=== PATIENT | female | born 1980 | race American Indian/Alaskan Native ===

== ENCOUNTER 2017-06-14 12:40 | Observation (INO) | payer MEDICAID ==
[~2017-06-14] VITALS: Ht 170.2 cm; Wt 46.3 kg
[~2017-06-14 12:40] MED LIST: ACET1TAB12 PO; ALBU8HFA INH; ARIP5TAB4 PO; CETI-1 PO; CLIN300C3 PO; CYCL-1 PO; DICL100G15 TOP; DOCU-149 PO; ESCI10TA45 PO; ESOM20CA PO; ETON68IM; FAMO20TA44 PO; GUAI120015 PO; GUAI600T PO; HYDR25SU33 RC; HYDR50CA5 PO; IBUP-1986 PO; MECL-111 PO; OMEP20CA10 PO; ONDA4TAB12 PO; ONDA4TAB9 SL; OXYC-134 PO; PANT-47 PO; POTA10TA19 PO; PROCHC RC; QUET25TA PO; SUCR1ORA2 PO; TAMS0.4C32 PO; TOP25T PO
[2017-06-14] MEDS ORDERED: ondansetron/PF 4mg/2ml inj IV ONE (13:40)
[2017-06-14] MEDS ORDERED: morphine 4 MG/ML inj SYRINge IV ONE (13:40)
[2017-06-14] MEDS ORDERED: normal saline 1000ml 1,000 ML IV ONE (13:40)
[2017-06-14 13:47] LABS: CLARITY,URINE SLIGHTLY CLOUDY (Clear); COLOR,URINE STRAW (Yellow); GLUCOSE, URINE NEGATIVE (Neg); KETONES,URINE NEGATIVE (Neg); LEUKOCYTE ESTERASE ,URINE SMALL (Neg); NITRITES, URINE NEGATIVE (Neg); OCCULT BLOOD,URINE SMALL (Neg); PROTEIN,URINE NEGATIVE (Neg); UA COLLECTION TYPE CLN CATCH MIDSTREAM; UROBILINOGEN,URINE 0.2 E.U/dL (0.2-1.0)
[2017-06-14 13:49] LABS: BASOPHILS % (AUTO) 0.3 % (0-1); EOSINOPHILS % (AUTO) 0.4 % (0-6); HEMATOCRIT 42.6 % (35.0-45.0); HEMOGLOBIN 14.9 g/dl (12.0-16.0); LYMPHOCYTES # (AUTO) 1.8 X10'3 (1.1-4.8); LYMPHOCYTES % (AUTO) 32.8 % (21-51); MEAN CORPUSCULAR HEMOGLOBIN 32.6 PG (27.0-31.0); MEAN CORPUSCULAR VOLUME 93.1 FL (78-98); MEAN PLATELET VOLUME 6.7 FL (7.4-10.4); MONOCYTES # (AUTO) 0.2 X10'3 (0-0.9); MONOCYTES % (AUTO) 3.9 % (2-12); NEUTROPHILS # (AUTO) 3.4 X10'3 (1.8-7.7); NEUTROPHILS % (AUTO) 62.6 % (42-75); PLATELET COUNT 281 X10'3 (140-440); RED BLOOD COUNT 4.58 X10'6 (4.20-5.60); RED CELL DISTRIBUTION WIDTH 13.8 % (11.5-14.5); WHITE BLOOD COUNT 5.5 X10'3 (4.5-11.0)
[2017-06-14 13:57] LABS: PROTHROMBIN TIME 10.3 SECONDS (9.0-12.0)
[2017-06-14] MEDS ORDERED: CLON-527 PO (14:00)
[2017-06-14 14:03] LABS: ALANINE AMINOTRANSFERASE 23 U/L (12-78); ALBUMIN 4.1 G/DL (3.4-5.0); ALBUMIN/GLOBULIN RATIO 1.1 (1.1-1.5); ALKALINE PHOSPHATASE 82 IU/L (46-116); ANION GAP 10 (8-16); ASPARTATE AMINO TRANSFERASE 10 U/L (10-37); BILIRUBIN,TOTAL 0.5 MG/DL (0.1-1.0); BLOOD UREA NITROGEN 8 MG/DL (7-18); BUN/CREATININE RATIO 7.6 (6.6-38.0); CALCIUM 8.7 MG/DL (8.5-10.1); CHLORIDE 102 MMOL/L (99-107); CREATININE 1.05 MG/DL (0.40-0.90); GLUCOSE 103 MG/DL (70-104); LIPASE 67 U/L (73-393); POTASSIUM 4.4 MMOL/L (3.5-5.1); SODIUM 138 MMOL/L (135-145); TOTAL CARBON DIOXIDE 26.1 MMOL/L (24-32); TOTAL PROTEIN 7.8 G/DL (6.4-8.2); eGFR 60 ML/MIN
[2017-06-14 14:03] LABS: SQUAMOUS EPITHELIAL CELL,UR MODERATE /LPF (FEW)
[2017-06-14 14:04] LABS: BACTERIA,URINE 1+ /HPF (Neg); RBC,URINE NONE SEEN /HPF (0-2)
[2017-06-14 14:39] LABS: HCG SERUM QL NEGATIVE
[2017-06-14] MEDS ORDERED: pantoprazole 40 MG vial IV ONE (14:40)
[2017-06-14] MEDS ORDERED: morphine 5 MG/ML injection IV ONE (14:40)
[2017-06-14] MEDS ORDERED: acetaminophen 325mg tablet PO PRN (14:45)
[2017-06-14] MEDS ORDERED: magnesium hydroxide 30ml (MOM) UD suspension PO PRN (14:45)
[2017-06-14] MEDS ORDERED: ondansetron/PF 4mg/2ml inj IV PRN (14:45)
[2017-06-14] MEDS ORDERED: mag hydrox/Alum hydrox/simeth 30ml oral suspension PO PRN (14:45)
[2017-06-14] MEDS: normal saline 1000ml 1,000 ML IV SCH (14:52)
[2017-06-14] MEDS ORDERED: cyclobenzaprine 10mg tablet PO PRN ×2 (15:45→17:40)
[2017-06-14] MEDS ORDERED: clonazePAM 1mg tablet PO PRN ×2 (15:45→17:40)
[2017-06-14] MEDS ORDERED: pantoprazole 40MG/NS 100ML BAG 100 ML IV SCH (16:00)
[2017-06-14 16:18] VITALS: BP 122/73
[2017-06-14 16:24] LABS: OCCULT BLOOD STOOL POSITIVE (Neg)
[2017-06-14] MEDS: morphine 4 MG/ML inj SYRINge IV PRN (17:58)
[2017-06-14 18:40] VITALS: BP 112/70
[2017-06-14] MEDS ORDERED: quetiapine 100mg tablet PO SCH ×2 (21:00)
[2017-06-15] VITALS (9 sets, daily range): BP systolic 86–109; BP diastolic 44–70
[2017-06-15] MEDS: normal saline 1000ml 1,000 ML IV SCH ×2 (00:04→10:43)
[2017-06-15] MEDS: morphine 4 MG/ML inj SYRINge IV PRN ×2 (04:47→10:20)
[2017-06-15 05:24] LABS: BASOPHILS % (AUTO) 0.2 % (0-1); EOSINOPHILS % (AUTO) 0.3 % (0-6); HEMATOCRIT 35.7 % (35.0-45.0); HEMOGLOBIN 12.6 g/dl (12.0-16.0); LYMPHOCYTES # (AUTO) 2.9 X10'3 (1.1-4.8); LYMPHOCYTES % (AUTO) 59.8 % (21-51); MEAN CORPUSCULAR HEMOGLOBIN 32.6 PG (27.0-31.0); MEAN CORPUSCULAR HGB CONC 35.3 % (33.0-36.5); MEAN CORPUSCULAR VOLUME 92.5 FL (78-98); MEAN PLATELET VOLUME 6.7 FL (7.4-10.4); MONOCYTES # (AUTO) 0.3 X10'3 (0-0.9); MONOCYTES % (AUTO) 6.7 % (2-12); NEUTROPHILS # (AUTO) 1.6 X10'3 (1.8-7.7); PLATELET COUNT 222 X10'3 (140-440); RED BLOOD COUNT 3.86 X10'6 (4.20-5.60); RED CELL DISTRIBUTION WIDTH 13.7 % (11.5-14.5); WHITE BLOOD COUNT 4.8 X10'3 (4.5-11.0)
[2017-06-15 05:36] LABS: ALBUMIN 3.1 G/DL (3.4-5.0); ANION GAP 9 (8-16); BLOOD UREA NITROGEN 9 MG/DL (7-18); BUN/CREATININE RATIO 9.5 (6.6-38.0); CALCIUM 7.9 MG/DL (8.5-10.1); CHLORIDE 108 MMOL/L (99-107); CREATININE 0.95 MG/DL (0.40-0.90); GLUCOSE 89 MG/DL (70-104); POTASSIUM 3.9 MMOL/L (3.5-5.1); SODIUM 143 MMOL/L (135-145); TOTAL CARBON DIOXIDE 25.8 MMOL/L (24-32); eGFR 67 ML/MIN
[2017-06-15] MEDS ORDERED: non-formulary drug (Omeprazole 2 CAP) PO SCH (07:00)
[2017-06-15] MEDS ORDERED: normal saline 1000ml 1,000 ML IV SCH (07:23)
[2017-06-15] MEDS ORDERED: MIDAZolam 1mg/ml 10ml vial IV PRN (07:25)
[2017-06-15] MEDS ORDERED: LIDOcaine Viscous 15ml cup PO ONE (07:25)
[2017-06-15] MEDS ORDERED: fentaNYL/PF 50MCG/1 ML 2ML syringe IV PRN (07:25)
[2017-06-15] MEDS ORDERED: pantoprazole 40mg Tablet.DR PO SCH (07:30)
[2017-06-15] MEDS ORDERED: cetirizine 10mg tablet PO SCH (08:00)
[2017-06-15] MEDS ORDERED: citalopram 20mg tablet PO SCH (08:00)
[2017-06-15] MEDS ORDERED: potassium chloride 8mEq ER tablet PO SCH (08:00)
[2017-06-15] MEDS ORDERED: aripiprazole 5mg tablet PO SCH ×2 (08:00)
[2017-06-15] MEDS ORDERED: topiramate 25mg tablet PO SCH ×2 (08:00)
[2017-06-15] MEDS ORDERED: MIDAZolam 1mg/ml 10ml vial ONE (08:20)
[2017-06-15] MEDS ORDERED: fentaNYL/PF 50MCG/1 ML 2ML syringe ONE (08:20)
[2017-06-15] MEDS ORDERED: ketorolac trometh. 30mg/ml inj. IM ONE (14:20)
[2017-06-15] MEDS ORDERED: FLU VACC QS2017-18 36MOS UP/PF 60 MCG/0.5 ML SYRINGE IMVAC ONE (17:20)
== END 2017-06-15 15:15 | disposition home or self-care (01) ==
LOC: ER 12:42 → ED HOLD 14:43 → SUR 3N 16:12
PROVIDERS: ADMIT Family Medicine; ATTEND Family Medicine
DX: K92.0 Hematemesis (principal); F31.9 Bipolar disorder, unspecified; F41.9 Anxiety disorder, unspecified; K21.9 Gastro-esophageal reflux disease without esophagitis; K64.8 Other hemorrhoids; G43.909 Migraine, unspecified, not intractable, without status migrainosus; J40 Bronchitis, not specified as acute or chronic; G89.29 Other chronic pain; Z90.49 Acquired absence of other specified parts of digestive tract
CPT/HCPCS: 36415; 43239; 80048; 80053; 81001; 82272; 83690; 84703; 85025; 85610; 87070; 87088; 96374; 96375; 96376; 99285; C9113; G0378; J2250; J2270; J2405; J3010; J7030; A4620; G0500

== ENCOUNTER 2017-09-24 17:46 | Emergency (ER) | payer MEDICAID ==
[~2017-09-24] VITALS: Ht 175.3 cm; Wt 101.4 kg
[~2017-09-24 17:46] MED LIST changes: -ACET1TAB12 PO; -ALBU8HFA INH; -CLIN300C3 PO; +CLON-527 PO; -DICL100G15 TOP; -DOCU-149 PO; -ESOM20CA PO; -ETON68IM; -FAMO20TA44 PO; -GUAI120015 PO; -GUAI600T PO; -HYDR25SU33 RC; -HYDR50CA5 PO; -IBUP-1986 PO; -MECL-111 PO; -ONDA4TAB12 PO; -ONDA4TAB9 SL; -OXYC-134 PO; -PANT-47 PO; -PROCHC RC; -SUCR1ORA2 PO; -TAMS0.4C32 PO
[2017-09-24] MEDS ORDERED: proCHLORperazine 10 MG/2 ml inj IV ONE (19:20)
[2017-09-24] MEDS ORDERED: diphenhydrAMINE 50 mg/ml inj IV ONE (19:20)
[2017-09-24 20:21] VITALS: BP 109/64
== END 2017-09-24 20:28 | disposition home or self-care (01) ==
LOC: ER 17:47
DX: G43.909 Migraine, unspecified, not intractable, without status migrainosus (principal); K21.9 Gastro-esophageal reflux disease without esophagitis; G89.29 Other chronic pain; Z88.0 Allergy status to penicillin; Z88.2 Allergy status to sulfonamides; Z98.51 Tubal ligation status; Z98.890 Other specified postprocedural states
CPT/HCPCS: 96374; 96375; 99284; J0780; J1200

== ENCOUNTER 2017-10-22 13:36 | Emergency (ER) | payer MEDICAID ==
[~2017-10-22] VITALS: Ht 175.3 cm; Wt 6.8 kg
[2017-10-22 14:37] LABS: BASOPHILS % (AUTO) 0.2 % (0-1); EOSINOPHILS % (AUTO) 0 % (0-6); HEMATOCRIT 41.6 % (35.0-45.0); HEMOGLOBIN 14.6 g/dl (12.0-16.0); LYMPHOCYTES # (AUTO) 2.1 X10'3 (1.1-4.8); LYMPHOCYTES % (AUTO) 51.7 % (21-51); MEAN CORPUSCULAR HEMOGLOBIN 32.3 PG (27.0-31.0); MEAN CORPUSCULAR HGB CONC 35.1 % (33.0-36.5); MEAN CORPUSCULAR VOLUME 92.1 FL (78-98); MEAN PLATELET VOLUME 6.9 FL (7.4-10.4); MONOCYTES # (AUTO) 0.2 X10'3 (0-0.9); MONOCYTES % (AUTO) 4.7 % (2-12); NEUTROPHILS # (AUTO) 1.7 X10'3 (1.8-7.7); NEUTROPHILS % (AUTO) 43.4 % (42-75); PLATELET COUNT 262 X10'3 (140-440); RED BLOOD COUNT 4.52 X10'6 (4.20-5.60); RED CELL DISTRIBUTION WIDTH 13.8 % (11.5-14.5)
[2017-10-22 14:42] LABS: URINE HCG NEGATIVE (NEG)
[2017-10-22 14:43] LABS: CLARITY,URINE CLOUDY (Clear); COLOR,URINE STRAW (Yellow); GLUCOSE, URINE NEGATIVE (Neg); KETONES,URINE NEGATIVE (Neg); LEUKOCYTE ESTERASE ,URINE SMALL (Neg); NITRITES, URINE NEGATIVE (Neg); OCCULT BLOOD,URINE NEGATIVE (Neg); PROTEIN,URINE NEGATIVE (Neg); UROBILINOGEN,URINE 0.2 E.U/dL (0.2-1.0)
[2017-10-22 14:46] LABS: UA COLLECTION TYPE CLN CATCH MIDSTREAM
[2017-10-22 14:48] LABS: PROTHROMBIN TIME 10.7 SECONDS (9.0-12.0)
[2017-10-22 14:55] LABS: ALANINE AMINOTRANSFERASE 26 U/L (12-78); ALBUMIN 3.8 G/DL (3.4-5.0); ALKALINE PHOSPHATASE 76 IU/L (46-116); ANION GAP 9 (8-16); ASPARTATE AMINO TRANSFERASE 10 U/L (10-37); BILIRUBIN,TOTAL 0.4 MG/DL (0.1-1.0); BLOOD UREA NITROGEN 8 MG/DL (7-18); BUN/CREATININE RATIO 8.5 (6.6-38.0); CALCIUM 8.8 MG/DL (8.5-10.1); CHLORIDE 101 MMOL/L (99-107); CREATININE 0.94 MG/DL (0.40-0.90); GLUCOSE 94 MG/DL (70-104); SODIUM 138 MMOL/L (135-145); TOTAL CARBON DIOXIDE 27.9 MMOL/L (24-32); TOTAL PROTEIN 7.7 G/DL (6.4-8.2); eGFR 68 ML/MIN
[2017-10-22 14:55] LABS: BACTERIA,URINE 2+ /HPF (Neg); MUCUS STRANDS NONE SEEN /LPF (Neg); RBC,URINE NONE SEEN /HPF (0-2); SQUAMOUS EPITHELIAL CELL,UR MANY /LPF (FEW)
[2017-10-22] MEDS ORDERED: LIDOcaine Viscous 15ml cup MM PRN (15:50)
[2017-10-22] MEDS ORDERED: pantoprazole 40mg Tablet.DR PO SCH (15:50)
[2017-10-22] MEDS ORDERED: mag hydrox/Alum hydrox/simeth 30ml oral suspension PO ONE (15:50)
[2017-10-22] MEDS ORDERED: ondansetron 4mg rapidly disintigrating tab PO ONE (15:50)
[2017-10-22 16:04] LABS: LIPASE 88 U/L (73-393)
[2017-10-22] MEDS ORDERED: PANT20TA3 PO (17:29)
[2017-10-22] MEDS ORDERED: ONDA4TAB6 PO (17:29)
[2017-10-22 17:44] VITALS: BP 118/69
== END 2017-10-22 17:45 | disposition home or self-care (01) ==
LOC: ER 13:37
DX: R10.13 Epigastric pain (principal); G43.909 Migraine, unspecified, not intractable, without status migrainosus; K21.9 Gastro-esophageal reflux disease without esophagitis; F31.9 Bipolar disorder, unspecified; R10.12 Left upper quadrant pain; K64.4 Residual hemorrhoidal skin tags; G89.29 Other chronic pain; Z98.51 Tubal ligation status; Z88.1 Allergy status to other antibiotic agents; Z88.0 Allergy status to penicillin; Z88.8 Allergy status to other drugs, medicaments and biological substances; Z79.899 Other long term (current) drug therapy; Z90.49 Acquired absence of other specified parts of digestive tract; Z90.89 Acquired absence of other organs
CPT/HCPCS: 36415; 80053; 81001; 81025; 83690; 85025; 85610; 99284

== ENCOUNTER 2018-02-15 13:44 | Emergency (ER) | payer MEDICAID ==
[~2018-02-15] VITALS: Ht 175.3 cm; Wt 98.7 kg
[~2018-02-15 13:44] MED LIST changes: +MECL-111 PO; +ONDA4TAB6 PO; +PANT20TA3 PO
[2018-02-15 13:59] VITALS: BP 137/82
[2018-02-15] MEDS ORDERED: oxyCODONE/APAP 10/325mg tablet PO ONE (14:20)
[2018-02-15] MEDS ORDERED: orphenadrine citrate 60mg/2ml inj. IM ONE (14:20)
[2018-02-15] MEDS ORDERED: CYCL-1 PO (14:29)
== END 2018-02-15 14:49 | disposition home or self-care (01) ==
LOC: ER 13:45
DX: M54.5 Low back pain (principal); G89.29 Other chronic pain; G43.909 Migraine, unspecified, not intractable, without status migrainosus; K21.9 Gastro-esophageal reflux disease without esophagitis; Z90.49 Acquired absence of other specified parts of digestive tract; Z98.51 Tubal ligation status; Z88.1 Allergy status to other antibiotic agents; Z88.0 Allergy status to penicillin; Z88.5 Allergy status to narcotic agent; Z88.6 Allergy status to analgesic agent; Z79.899 Other long term (current) drug therapy
CPT/HCPCS: 96372; 99283; J2360

== ENCOUNTER 2018-03-05 14:28 | Emergency (ER) | payer MEDICAID ==
[~2018-03-05] VITALS: Ht 175.3 cm; Wt 97.0 kg
[2018-03-05] MEDS ORDERED: ondansetron/PF 4mg/2ml inj IV ONE (15:10)
[2018-03-05] MEDS ORDERED: famotidine/PF 10 mg/ml inj IV ONE (15:10)
[2018-03-05 15:15] LABS: BASOPHILS % (AUTO) 0.3 % (0-1); EOSINOPHILS # (AUTO) 0.1 X10'3 (0-0.9); HEMATOCRIT 40.4 % (35.0-45.0); HEMOGLOBIN 13.7 g/dl (12.0-16.0); LYMPHOCYTES # (AUTO) 1.7 X10'3 (1.1-4.8); LYMPHOCYTES % (AUTO) 21.2 % (21-51); MEAN CORPUSCULAR HEMOGLOBIN 31.2 PG (27.0-31.0); MEAN CORPUSCULAR HGB CONC 33.8 % (33.0-36.5); MEAN CORPUSCULAR VOLUME 92.2 FL (78-98); MEAN PLATELET VOLUME 6.3 FL (7.4-10.4); MONOCYTES # (AUTO) 0.6 X10'3 (0-0.9); MONOCYTES % (AUTO) 7.1 % (2-12); NEUTROPHILS # (AUTO) 5.5 X10'3 (1.8-7.7); NEUTROPHILS % (AUTO) 70.4 % (42-75); PLATELET COUNT 254 X10'3 (140-440); RED BLOOD COUNT 4.39 X10'6 (4.20-5.60); RED CELL DISTRIBUTION WIDTH 13.3 % (11.5-14.5); WHITE BLOOD COUNT 7.8 X10'3 (4.5-11.0)
[2018-03-05 15:27] LABS: PROTHROMBIN TIME 10.5 SECONDS (9.0-12.0)
[2018-03-05 15:29] LABS: ALANINE AMINOTRANSFERASE 17 U/L (12-78); ALBUMIN 3.5 G/DL (3.4-5.0); ALKALINE PHOSPHATASE 65 IU/L (46-116); ANION GAP 9 (8-16); ASPARTATE AMINO TRANSFERASE 10 U/L (10-37); BILIRUBIN,TOTAL 0.4 MG/DL (0.1-1.0); BLOOD UREA NITROGEN 8 MG/DL (7-18); CALCIUM 8.6 MG/DL (8.5-10.1); CHLORIDE 106 MMOL/L (99-107); CREATININE 0.89 MG/DL (0.40-0.90); GLUCOSE 104 MG/DL (70-104); LIPASE 151 U/L (73-393); POTASSIUM 3.4 MMOL/L (3.5-5.1); SODIUM 140 MMOL/L (135-145); TOTAL CARBON DIOXIDE 25.5 MMOL/L (24-32); TOTAL PROTEIN 7.1 G/DL (6.4-8.2); eGFR 72 ML/MIN
[2018-03-05] MEDS ORDERED: iohexol 300mg/ml 100ml inj. ONE (15:38)
[2018-03-05 15:42] LABS: URINE HCG NEGATIVE (NEG)
[2018-03-05 15:48] LABS: CLARITY,URINE SLIGHTLY CLOUDY (Clear); COLOR,URINE YELLOW (Yellow); GLUCOSE, URINE NEGATIVE (Neg); KETONES,URINE NEGATIVE (Neg); LEUKOCYTE ESTERASE ,URINE LARGE (Neg); NITRITES, URINE NEGATIVE (Neg); OCCULT BLOOD,URINE LARGE (Neg); PH,URINE 5.5 (4.8-8.0); PROTEIN,URINE NEGATIVE (Neg); UROBILINOGEN,URINE 0.2 E.U/dL (0.2-1.0)
[2018-03-05 15:59] LABS: UA COLLECTION TYPE CLN CATCH MIDSTREAM; WBC,URINE 20-30 /HPF (0-4)
[2018-03-05 16:00] LABS: BACTERIA,URINE FEW /HPF (Neg); MUCUS STRANDS FEW /LPF (Neg); RBC,URINE 0-2 /HPF (0-2); SQUAMOUS EPITHELIAL CELL,UR FEW /LPF (FEW)
[2018-03-05] MEDS ORDERED: morphine 4 MG/ML inj SYRINge IV ONE (16:20)
[2018-03-05] MEDS ORDERED: ONDA4TAB9 PO (16:21)
[2018-03-05] MEDS ORDERED: NITR100C6 PO (16:27)
[2018-03-05 17:02] VITALS: BP 116/77
== END 2018-03-05 17:06 | disposition home or self-care (01) ==
LOC: ER 14:29
DX: N39.0 Urinary tract infection, site not specified (principal); R10.13 Epigastric pain; G43.909 Migraine, unspecified, not intractable, without status migrainosus; K21.9 Gastro-esophageal reflux disease without esophagitis; G89.29 Other chronic pain; Z90.49 Acquired absence of other specified parts of digestive tract; Z98.51 Tubal ligation status; Z88.1 Allergy status to other antibiotic agents; Z88.0 Allergy status to penicillin; Z88.5 Allergy status to narcotic agent; Z88.6 Allergy status to analgesic agent; Z79.899 Other long term (current) drug therapy
CPT/HCPCS: 36415; 74177; 80053; 81001; 81025; 83690; 85025; 85610; 87077; 87088; 87186; 93005; 96374; 96375; 99285; J2270; J2405; J3490; Q9967

== ENCOUNTER 2018-03-11 13:13 | Emergency (ER) | payer MEDICAID ==
[~2018-03-11] VITALS: Ht 175.3 cm; Wt 100.0 kg
[~2018-03-11 13:13] MED LIST changes: +NITR100C6 PO; +ONDA4TAB9 PO
[2018-03-11 13:16] VITALS: BP 132/78
[2018-03-11] MEDS ORDERED: phenazopyridine 100mg tablet PO ONE (13:35)
[2018-03-11] MEDS ORDERED: CefTRIAXone 1000mg IM Kit (w/lidocaine diluent) IM ONE (13:35)
[2018-03-11] MEDS ORDERED: ciprofloxacin 250mg tablet PO ONE (13:35)
[2018-03-11] MEDS ORDERED: PHEN-824 PO (13:38)
[2018-03-11] MEDS ORDERED: CIPR-259 PO (13:38)
== END 2018-03-11 14:11 | disposition home or self-care (01) ==
LOC: ER 13:13
DX: N39.0 Urinary tract infection, site not specified (principal); G43.909 Migraine, unspecified, not intractable, without status migrainosus; K21.9 Gastro-esophageal reflux disease without esophagitis; G89.29 Other chronic pain; M54.9 Dorsalgia, unspecified; Z90.49 Acquired absence of other specified parts of digestive tract; Z98.51 Tubal ligation status; Z88.6 Allergy status to analgesic agent; Z88.1 Allergy status to other antibiotic agents; Z88.0 Allergy status to penicillin; Z88.2 Allergy status to sulfonamides; Z88.8 Allergy status to other drugs, medicaments and biological substances
CPT/HCPCS: 96372; 99283; J0696

== ENCOUNTER 2018-05-16 16:59 | Emergency (ER) | payer MEDICAID ==
[~2018-05-16] VITALS: Ht 165.1 cm; Wt 97.0 kg
[~2018-05-16 16:59] MED LIST changes: -ONDA4TAB9 PO; +PHEN-824 PO
[2018-05-16 17:03] VITALS: BP 118/76
[2018-05-16 18:42] LABS: URINE HCG NEGATIVE (NEG)
[2018-05-16] MEDS ORDERED: ondansetron 4mg rapidly disintigrating tab PO ONE (18:45)
[2018-05-16 18:48] LABS: CLARITY,URINE SLIGHTLY CLOUDY (Clear); COLOR,URINE YELLOW (Yellow); GLUCOSE, URINE NEGATIVE (Neg); KETONES,URINE 15 mg/dl (Neg); LEUKOCYTE ESTERASE ,URINE SMALL (Neg); NITRITES, URINE NEGATIVE (Neg); OCCULT BLOOD,URINE NEGATIVE (Neg); PROTEIN,URINE NEGATIVE (Neg); UROBILINOGEN,URINE 0.2 E.U/dL (0.2-1.0)
[2018-05-16 18:49] LABS: UA COLLECTION TYPE CLN CATCH MIDSTREAM
--- NOTE | 2018-05-16 18:52 | NUR ---
Pt passed PO challenge of 24 oz water without emesis.
[2018-05-16 19:08] LABS: BACTERIA,URINE 2+ /HPF (Neg); RBC,URINE NONE SEEN /HPF (0-2); SQUAMOUS EPITHELIAL CELL,UR MANY /LPF (FEW)
[2018-05-16] MEDS ORDERED: ONDA4TAB6 PO (19:26)
[2018-05-16] MEDS ORDERED: NITR100C6 PO (19:26)
== END 2018-05-16 19:45 | disposition home or self-care (01) ==
LOC: ER 17:00
DX: R11.10 Vomiting, unspecified (principal); G43.909 Migraine, unspecified, not intractable, without status migrainosus; K21.9 Gastro-esophageal reflux disease without esophagitis; G89.29 Other chronic pain; Z90.49 Acquired absence of other specified parts of digestive tract; Z98.51 Tubal ligation status; Z88.1 Allergy status to other antibiotic agents; Z88.0 Allergy status to penicillin; Z88.5 Allergy status to narcotic agent; Z88.6 Allergy status to analgesic agent; Z79.899 Other long term (current) drug therapy
CPT/HCPCS: 81001; 81025; 99283

== ENCOUNTER 2018-06-28 13:02 | Emergency (ER) | payer MEDICAID ==
[~2018-06-28] VITALS: Ht 274.3 cm; Wt 91.5 kg
[2018-06-28 13:50] LABS: BASOPHILS % (AUTO) 0.4 % (0-1); EOSINOPHILS % (AUTO) 0.3 % (0-6); HEMATOCRIT 40.4 % (35.0-45.0); HEMOGLOBIN 14.1 g/dl (12.0-16.0); LYMPHOCYTES # (AUTO) 1.9 X10'3 (1.1-4.8); LYMPHOCYTES % (AUTO) 36.1 % (21-51); MEAN CORPUSCULAR HEMOGLOBIN 31.7 PG (27.0-31.0); MEAN CORPUSCULAR HGB CONC 34.8 g/dL (33.0-36.5); MEAN CORPUSCULAR VOLUME 91.2 FL (78-98); MEAN PLATELET VOLUME 6.8 FL (7.4-10.4); MONOCYTES # (AUTO) 0.3 X10'3 (0-0.9); MONOCYTES % (AUTO) 4.8 % (2-12); NEUTROPHILS # (AUTO) 3.1 X10'3 (1.8-7.7); NEUTROPHILS % (AUTO) 58.4 % (42-75); PLATELET COUNT 232 X10'3 (140-440); RED BLOOD COUNT 4.43 X10'6 (4.20-5.60); RED CELL DISTRIBUTION WIDTH 14.3 % (11.5-14.5); WHITE BLOOD COUNT 5.2 X10'3 (4.5-11.0)
[2018-06-28 13:59] LABS: ALANINE AMINOTRANSFERASE 22 U/L (12-78); ALBUMIN 3.7 G/DL (3.4-5.0); ALKALINE PHOSPHATASE 56 IU/L (46-116); ANION GAP 9 (8-16); ASPARTATE AMINO TRANSFERASE 17 U/L (10-37); BILIRUBIN,TOTAL 0.5 MG/DL (0.1-1.0); BLOOD UREA NITROGEN 13 MG/DL (7-18); BUN/CREATININE RATIO 16.3 (6.6-38.0); CALCIUM 9.8 MG/DL (8.5-10.1); CHLORIDE 103 MMOL/L (99-107); GLUCOSE 100 MG/DL (70-104); SODIUM 139 MMOL/L (135-145); TOTAL PROTEIN 7.4 G/DL (6.4-8.2); eGFR 81 ML/MIN
[2018-06-28 14:16] LABS: PARTIAL THROMBOPLASTIN TIME 26 SECONDS (22-32); PROTHROMBIN TIME 10.4 SECONDS (9.0-12.0)
[2018-06-28] MEDS ORDERED: LIDOcaine Viscous 15ml cup PO ONE (17:40)
[2018-06-28] MEDS ORDERED: sucralfate 1 gm tablet PO ONE (17:40)
[2018-06-28] MEDS ORDERED: metoclopramide 10mg tablet PO ONE (17:40)
[2018-06-28] MEDS ORDERED: mag hydrox/Alum hydrox/simeth 30ml oral suspension PO ONE (17:40)
[2018-06-28 18:27] VITALS: BP 117/82
== END 2018-06-28 18:30 | disposition home or self-care (01) ==
LOC: ER 13:04
DX: R10.13 Epigastric pain (principal); R07.89 Other chest pain; R20.0 Anesthesia of skin; K21.9 Gastro-esophageal reflux disease without esophagitis; G89.29 Other chronic pain; G43.909 Migraine, unspecified, not intractable, without status migrainosus; Z88.1 Allergy status to other antibiotic agents; Z88.0 Allergy status to penicillin; Z88.2 Allergy status to sulfonamides; Z88.6 Allergy status to analgesic agent; Z88.8 Allergy status to other drugs, medicaments and biological substances; Z79.899 Other long term (current) drug therapy; Z87.891 Personal history of nicotine dependence; Z90.49 Acquired absence of other specified parts of digestive tract; Z90.89 Acquired absence of other organs; Z98.51 Tubal ligation status; Z87.440 Personal history of urinary (tract) infections
CPT/HCPCS: 36415; 71045; 80053; 84484; 85025; 85610; 85730; 93005; 99284; J8597

== ENCOUNTER 2018-09-19 18:07 | Emergency (ER) | payer MEDICAID ==
[~2018-09-19] VITALS: Ht 175.3 cm; Wt 100.5 kg
[2018-09-19 18:18] VITALS: BP 117/79
[2018-09-19] MEDS ORDERED: CEPH-571 PO (18:41)
== END 2018-09-19 18:47 | disposition home or self-care (01) ==
LOC: ER 18:07
DX: N61.1 Abscess of the breast and nipple (principal); G43.909 Migraine, unspecified, not intractable, without status migrainosus; K21.9 Gastro-esophageal reflux disease without esophagitis; G89.29 Other chronic pain; Z90.49 Acquired absence of other specified parts of digestive tract; Z90.89 Acquired absence of other organs; Z98.51 Tubal ligation status; Z88.2 Allergy status to sulfonamides; Z88.0 Allergy status to penicillin; Z88.5 Allergy status to narcotic agent; Z88.6 Allergy status to analgesic agent; Z79.899 Other long term (current) drug therapy
CPT/HCPCS: 99283

== ENCOUNTER 2018-12-31 09:50 | Emergency (ER) | payer MEDICAID ==
[~2018-12-31] VITALS: Ht 177.8 cm; Wt 96.0 kg
[~2018-12-31 09:50] MED LIST changes: +CEPH-571 PO; -OMEP20CA10 PO; +OMEP20CA11 PO
[2018-12-31 10:07] VITALS: BP 106/74
[2018-12-31 10:42] LABS: CLARITY,URINE SLIGHTLY CLOUDY (Clear); COLOR,URINE STRAW (Yellow); GLUCOSE, URINE NEGATIVE (Neg); KETONES,URINE NEGATIVE (Neg); LEUKOCYTE ESTERASE ,URINE SMALL (Neg); NITRITES, URINE NEGATIVE (Neg); OCCULT BLOOD,URINE NEGATIVE (Neg); PH,URINE 5.5 (4.8-8.0); PROTEIN,URINE NEGATIVE (Neg); UROBILINOGEN,URINE 0.2 E.U/dL (0.2-1.0)
[2018-12-31 10:43] LABS: UA COLLECTION TYPE CLN CATCH MIDSTREAM; URINE HCG NEGATIVE (NEG)
[2018-12-31 10:48] LABS: BACTERIA,URINE 1+ /HPF (Neg); MUCUS STRANDS NONE SEEN /LPF (Neg); RBC,URINE NONE SEEN /HPF (0-2); SQUAMOUS EPITHELIAL CELL,UR MODERATE /LPF (FEW)
[2018-12-31 11:08] LABS: BASOPHILS % (AUTO) 0.3 % (0-1); EOSINOPHILS % (AUTO) 0.1 % (0-6); HEMOGLOBIN 14.1 g/dl (12.0-16.0); LYMPHOCYTES # (AUTO) 1.8 X10'3 (1.1-4.8); LYMPHOCYTES % (AUTO) 43.4 % (21-51); MEAN CORPUSCULAR HEMOGLOBIN 31.5 PG (27.0-31.0); MEAN CORPUSCULAR HGB CONC 34.3 g/dL (33.0-36.5); MEAN CORPUSCULAR VOLUME 91.8 FL (78-98); MEAN PLATELET VOLUME 6.4 FL (7.4-10.4); MONOCYTES # (AUTO) 0.2 X10'3 (0-0.9); MONOCYTES % (AUTO) 4.1 % (2-12); NEUTROPHILS # (AUTO) 2.2 X10'3 (1.8-7.7); NEUTROPHILS % (AUTO) 52.1 % (42-75); PLATELET COUNT 301 X10'3 (140-440); RED BLOOD COUNT 4.47 X10'6 (4.20-5.60); RED CELL DISTRIBUTION WIDTH 13.4 % (11.5-14.5); WHITE BLOOD COUNT 4.2 X10'3 (4.5-11.0)
[2018-12-31 11:20] LABS: ALANINE AMINOTRANSFERASE 22 U/L (12-78); ALBUMIN/GLOBULIN RATIO 1.2 (1.1-1.5); ALKALINE PHOSPHATASE 67 IU/L (46-116); ANION GAP 7 (8-16); ASPARTATE AMINO TRANSFERASE 12 U/L (10-37); BILIRUBIN,TOTAL 0.5 MG/DL (0.1-1.0); BLOOD UREA NITROGEN 5 MG/DL (7-18); BUN/CREATININE RATIO 6.8 (6.6-38.0); CALCIUM 8.7 MG/DL (8.5-10.1); CHLORIDE 107 MMOL/L (99-107); CREATININE 0.74 MG/DL (0.40-0.90); GLUCOSE 97 MG/DL (70-104); POTASSIUM 4.4 MMOL/L (3.5-5.1); SODIUM 140 MMOL/L (135-145); TOTAL PROTEIN 7.4 G/DL (6.4-8.2); eGFR 88 ML/MIN
[2018-12-31] MEDS ORDERED: CEPH500C5 PO (11:48)
== END 2018-12-31 12:03 | disposition home or self-care (01) ==
LOC: ER 09:50
DX: N39.0 Urinary tract infection, site not specified (principal); R31.9 Hematuria, unspecified; G43.909 Migraine, unspecified, not intractable, without status migrainosus; K21.9 Gastro-esophageal reflux disease without esophagitis; G89.29 Other chronic pain; F41.9 Anxiety disorder, unspecified; F31.9 Bipolar disorder, unspecified; Z90.49 Acquired absence of other specified parts of digestive tract; Z90.89 Acquired absence of other organs; Z98.51 Tubal ligation status; Z88.2 Allergy status to sulfonamides; Z88.0 Allergy status to penicillin; Z88.5 Allergy status to narcotic agent; Z88.6 Allergy status to analgesic agent; Z88.8 Allergy status to other drugs, medicaments and biological substances; Z79.899 Other long term (current) drug therapy
CPT/HCPCS: 36415; 80053; 81001; 81025; 85025; 85610; 87088; 99283

== ENCOUNTER 2019-07-22 18:24 | Emergency (ER) | payer MEDICAID ==
[~2019-07-22] VITALS: Ht 175.3 cm; Wt 70.0 kg
[~2019-07-22 18:24] MED LIST changes: +ARIP5TAB14 PO; -ARIP5TAB4 PO; +CEPH500C5 PO; -MECL-111 PO; +MECL-159 PO; -OMEP20CA11 PO; +OMEP20CA15 PO
[2019-07-22 18:28] VITALS: BP 120/56
--- NOTE | 2019-07-22 19:16 | NUR ---
Evaluated by PA in ambulance bay
[2019-07-22] MEDS ORDERED: ALBU8HFA PO (19:25)
[2019-07-22] MEDS ORDERED: BENZ-16 PO (19:25)
[2019-07-22] MEDS ORDERED: ONDA4TAB6 PO (19:25)
== END 2019-07-22 19:32 | disposition home or self-care (01) ==
LOC: ER 18:24 → MERGE 18:24 → ER 19:32
DX: J06.9 Acute upper respiratory infection, unspecified (principal); R11.2 Nausea with vomiting, unspecified; Z88.0 Allergy status to penicillin; Z88.5 Allergy status to narcotic agent; Z79.899 Other long term (current) drug therapy
CPT/HCPCS: 99283

== ENCOUNTER 2019-09-20 19:08 | Emergency (ER) | payer MEDICAID ==
[~2019-09-20] VITALS: Ht 175.3 cm; Wt 97.8 kg
[2019-09-20 20:00] LABS: BASOPHILS % (AUTO) 0.3 % (0-1); EOSINOPHILS % (AUTO) 0.1 % (0-6); HEMOGLOBIN 13.7 g/dl (12.0-16.0); LYMPHOCYTES # (AUTO) 2.7 X10'3 (1.1-4.8); LYMPHOCYTES % (AUTO) 50.5 % (21-51); MEAN CORPUSCULAR HEMOGLOBIN 32.3 PG (27.0-31.0); MEAN CORPUSCULAR HGB CONC 34.2 g/dL (33.0-36.5); MEAN CORPUSCULAR VOLUME 94.6 FL (78-98); MEAN PLATELET VOLUME 6.5 FL (7.4-10.4); MONOCYTES # (AUTO) 0.3 X10'3 (0-0.9); MONOCYTES % (AUTO) 5.8 % (2-12); NEUTROPHILS # (AUTO) 2.3 X10'3 (1.8-7.7); NEUTROPHILS % (AUTO) 43.3 % (42-75); PLATELET COUNT 244 X10'3 (140-440); RED BLOOD COUNT 4.23 X10'6 (4.20-5.60); RED CELL DISTRIBUTION WIDTH 13.8 % (11.5-14.5); WHITE BLOOD COUNT 5.4 X10'3 (4.5-11.0)
[2019-09-20 20:20] LABS: ALANINE AMINOTRANSFERASE 18 U/L (12-78); ALBUMIN 3.7 G/DL (3.4-5.0); ALBUMIN/GLOBULIN RATIO 0.9 (1.1-1.5); ALKALINE PHOSPHATASE 74 IU/L (46-116); ANION GAP 7 (8-16); ASPARTATE AMINO TRANSFERASE 16 U/L (10-37); BILIRUBIN,TOTAL 0.6 MG/DL (0.1-1.0); BLOOD UREA NITROGEN 11 MG/DL (7-18); BUN/CREATININE RATIO 7.1 (6.6-38.0); CALCIUM 8.3 MG/DL (8.5-10.1); CHLORIDE 104 MMOL/L (99-107); CREATININE 1.56 MG/DL (0.40-0.90); GLUCOSE 88 MG/DL (70-104); POTASSIUM 4.1 MMOL/L (3.5-5.1); SODIUM 139 MMOL/L (135-145); TOTAL CARBON DIOXIDE 27.8 MMOL/L (24-32); TOTAL PROTEIN 7.6 G/DL (6.4-8.2); eGFR 37 ML/MIN
--- NOTE | 2019-09-20 20:27 | NUR ---
PT VERY TEARFUL AND ANXIOUS, PROVIDER MADE AWARE
[2019-09-20] MEDS ORDERED: LORazepam 1 MG tablet PO ONE (20:30)
[2019-09-20] MEDS ORDERED: normal saline 1000ML IV soln IVB ONE (21:10)
[2019-09-20] MEDS ORDERED: aspirin 81mg tab.chew PO ONE (21:10)
[2019-09-20] MEDS ORDERED: ondansetron/PF 4mg/2ml inj IV ONE (21:15)
[2019-09-20 21:17] LABS: MAGNESIUM 1.9 MG/DL (1.5-2.4)
[2019-09-20 22:12] LABS: URINE HCG NEGATIVE (NEG)
[2019-09-20 22:33] LABS: CLARITY,URINE CLEAR (Clear); COLOR,URINE STRAW (Yellow); GLUCOSE, URINE NEGATIVE (Neg); KETONES,URINE NEGATIVE (Neg); LEUKOCYTE ESTERASE ,URINE NEGATIVE (Neg); NITRITES, URINE NEGATIVE (Neg); OCCULT BLOOD,URINE NEGATIVE (Neg); PROTEIN,URINE NEGATIVE (Neg); UROBILINOGEN,URINE 0.2 E.U/dL (0.2-1.0)
[2019-09-20 22:34] LABS: UA COLLECTION TYPE CLN CATCH MIDSTREAM
[2019-09-20 23:55] VITALS: BP 113/64
== END 2019-09-20 23:57 | disposition home or self-care (01) ==
LOC: ER 19:09
DX: M25.512 Pain in left shoulder (principal); R07.89 Other chest pain; R20.0 Anesthesia of skin; N17.9 Acute kidney failure, unspecified; F41.9 Anxiety disorder, unspecified; G43.909 Migraine, unspecified, not intractable, without status migrainosus; K21.9 Gastro-esophageal reflux disease without esophagitis; G89.29 Other chronic pain; F31.9 Bipolar disorder, unspecified; Z90.49 Acquired absence of other specified parts of digestive tract; Z90.89 Acquired absence of other organs; Z98.51 Tubal ligation status; Z88.2 Allergy status to sulfonamides; Z88.0 Allergy status to penicillin; Z88.5 Allergy status to narcotic agent; Z88.8 Allergy status to other drugs, medicaments and biological substances; Z79.899 Other long term (current) drug therapy
CPT/HCPCS: 36415; 71045; 80053; 81003; 81025; 83735; 84484; 85025; 93005; 96374; 99285; J2405; J7030

== ENCOUNTER 2019-11-25 13:25 | Emergency (ER) | payer MEDICAID ==
[~2019-11-25] VITALS: Ht 175.3 cm; Wt 90.0 kg
[2019-11-25 14:21] LABS: BASOPHILS % (AUTO) 0.2 % (0-1); EOSINOPHILS % (AUTO) 0.1 % (0-6); HEMATOCRIT 41.7 % (35.0-45.0); HEMOGLOBIN 14.4 g/dl (12.0-16.0); LYMPHOCYTES # (AUTO) 1.7 X10'3 (1.1-4.8); LYMPHOCYTES % (AUTO) 32.7 % (21-51); MEAN CORPUSCULAR HGB CONC 34.5 g/dL (33.0-36.5); MEAN CORPUSCULAR VOLUME 92.6 FL (78-98); MONOCYTES # (AUTO) 0.2 X10'3 (0-0.9); MONOCYTES % (AUTO) 3.9 % (2-12); NEUTROPHILS # (AUTO) 3.2 X10'3 (1.8-7.7); NEUTROPHILS % (AUTO) 63.1 % (42-75); PLATELET COUNT 252 X10'3 (140-440); RED BLOOD COUNT 4.51 X10'6 (4.20-5.60); RED CELL DISTRIBUTION WIDTH 13.2 % (11.5-14.5); WHITE BLOOD COUNT 5.1 X10'3 (4.5-11.0)
[2019-11-25 14:36] LABS: ALANINE AMINOTRANSFERASE 17 U/L (12-78); ALBUMIN/GLOBULIN RATIO 1.1 (1.1-1.5); ALKALINE PHOSPHATASE 68 IU/L (46-116); ANION GAP 9 (8-16); ASPARTATE AMINO TRANSFERASE 13 U/L (10-37); BILIRUBIN,TOTAL 0.4 MG/DL (0.1-1.0); BLOOD UREA NITROGEN 13 MG/DL (7-18); BUN/CREATININE RATIO 14.8 (6.6-38.0); CALCIUM 8.7 MG/DL (8.5-10.1); CHLORIDE 105 MMOL/L (99-107); CREATININE 0.88 MG/DL (0.40-0.90); GLUCOSE 103 MG/DL (70-104); LIPASE 296 U/L (73-393); POTASSIUM 4.2 MMOL/L (3.5-5.1); SODIUM 138 MMOL/L (135-145); TOTAL PROTEIN 7.7 G/DL (6.4-8.2); eGFR 72 ML/MIN
[2019-11-25 17:12] LABS: CLARITY,URINE SLIGHTLY CLOUDY (Clear); COLOR,URINE YELLOW (Yellow); GLUCOSE, URINE NEGATIVE (Neg); KETONES,URINE NEGATIVE (Neg); LEUKOCYTE ESTERASE ,URINE TRACE (Neg); NITRITES, URINE NEGATIVE (Neg); OCCULT BLOOD,URINE LARGE (Neg); PH,URINE 5.5 (4.8-8.0); PROTEIN,URINE NEGATIVE (Neg); URINE HCG NEGATIVE (NEG); UROBILINOGEN,URINE 0.2 E.U/dL (0.2-1.0)
[2019-11-25 17:13] LABS: UA COLLECTION TYPE CLN CATCH MIDSTREAM
[2019-11-25 17:17] LABS: SQUAMOUS EPITHELIAL CELL,UR FEW /LPF (FEW)
[2019-11-25 17:18] LABS: RBC,URINE 50-100 /HPF (0-2)
[2019-11-25 17:22] LABS: BACTERIA,URINE FEW /HPF (Neg); WBC,URINE 0-4 /HPF (0-4)
[2019-11-25] MEDS ORDERED: morphine 4 MG/ML inj SYRINge IV ONE (18:05)
[2019-11-25] MEDS ORDERED: ondansetron/PF 4mg/2ml inj IV ONE (18:05)
--- NOTE | 2019-11-25 18:21 | NUR ---
ULTRASOUND AT BEDSIDE
[2019-11-25] MEDS ORDERED: IBUP-1984 PO (19:09)
[2019-11-25 19:21] VITALS: BP 124/85
== END 2019-11-25 19:23 | disposition home or self-care (01) ==
LOC: ER 13:26
DX: D25.9 Leiomyoma of uterus, unspecified (principal); N93.8 Other specified abnormal uterine and vaginal bleeding; R10.32 Left lower quadrant pain; R19.7 Diarrhea, unspecified; R11.10 Vomiting, unspecified; G43.909 Migraine, unspecified, not intractable, without status migrainosus; K21.9 Gastro-esophageal reflux disease without esophagitis; G89.29 Other chronic pain; F41.9 Anxiety disorder, unspecified; F31.9 Bipolar disorder, unspecified; Z87.440 Personal history of urinary (tract) infections; Z90.89 Acquired absence of other organs; Z98.51 Tubal ligation status; Z88.0 Allergy status to penicillin; Z88.1 Allergy status to other antibiotic agents; Z88.8 Allergy status to other drugs, medicaments and biological substances; Z88.6 Allergy status to analgesic agent; Z79.2 Long term (current) use of antibiotics; Z79.899 Other long term (current) drug therapy
CPT/HCPCS: 36415; 76856; 80053; 81001; 81025; 83690; 85025; 87088; 93976; 96374; 96375; 99284; J2270; J2405

== ENCOUNTER 2020-03-24 05:12 | Day surgery (SDC) | payer MEDICAID ==
[2020-03-18 16:44] LABS: BASOPHILS % (AUTO) 0.3 % (0-1); EOSINOPHILS % (AUTO) 0.1 % (0-6); LYMPHOCYTES # (AUTO) 1.7 X10'3 (1.1-4.8); LYMPHOCYTES % (AUTO) 36.8 % (21-51); MEAN CORPUSCULAR VOLUME 94.2 FL (78-98); MEAN PLATELET VOLUME 6.9 FL (7.4-10.4); MONOCYTES # (AUTO) 0.2 X10'3 (0-0.9); MONOCYTES % (AUTO) 5.2 % (2-12); NEUTROPHILS # (AUTO) 2.7 X10'3 (1.8-7.7); NEUTROPHILS % (AUTO) 57.6 % (42-75); PRE OP HEMATOCRIT 46.1 % (35.0-45.0); PRE OP HEMOGLOBIN 15.7 g/dL (12.0-16.0); PRE OP PLATELET COUNT 303 X10'3 (140-440); RED BLOOD COUNT 4.89 X10'6 (4.20-5.60); RED CELL DISTRIBUTION WIDTH 13.7 % (11.5-14.5)
[2020-03-18 16:44] LABS: UA COLLECTION TYPE CLN CATCH MIDSTREAM
[2020-03-18 16:45] LABS: CLARITY,URINE SLIGHTLY CLOUDY (Clear); COLOR,URINE STRAW (Yellow); GLUCOSE, URINE NEGATIVE (Neg); KETONES,URINE NEGATIVE (Neg); LEUKOCYTE ESTERASE ,URINE NEGATIVE (Neg); NITRITES, URINE NEGATIVE (Neg); OCCULT BLOOD,URINE NEGATIVE (Neg); PROTEIN,URINE NEGATIVE (Neg); UROBILINOGEN,URINE 0.2 E.U/dL (0.2-1.0)
[2020-03-18 16:55] LABS: PRE OP PROTIME 10.7 SECONDS (9.0-12.0)
[2020-03-18 16:56] LABS: ALBUMIN 4.3 G/DL (3.4-5.0); ALBUMIN/GLOBULIN RATIO 1.2 (1.1-1.5); ALKALINE PHOSPHATASE 72 IU/L (46-116); BLOOD UREA NITROGEN 10 MG/DL (7-18); BUN/CREATININE RATIO 11.5 (6.6-38.0); CALCIUM 9.1 MG/DL (8.5-10.1); CHLORIDE 102 MMOL/L (99-107); CREATININE 0.87 MG/DL (0.40-0.90); PRE OP ALT 28 U/L (30-65); PRE OP ANION GAP 7 (8-16); PRE OP AST 17 U/L (10-37); PRE OP BILIRUB, TOTAL 0.5 MG/DL (0.0-1.0); PRE OP GLUCOSE 119 MG/DL (70-104); PRE OP POTASSIUM 3.8 MMOL/L (3.4-5.1); PRE OP SODIUM 137 MMOL/L (135-145); TOTAL CARBON DIOXIDE 27.9 MMOL/L (24-32); TOTAL PROTEIN 7.9 G/DL (6.4-8.2); eGFR 73 ML/MIN
[2020-03-18 16:58] LABS: HCG SERUM QL NEGATIVE
[2020-03-18 16:58] LABS: SQUAMOUS EPITHELIAL CELL,UR MANY /LPF (FEW)
[2020-03-18 16:59] LABS: BACTERIA,URINE FEW /HPF (Neg); MUCUS STRANDS MANY /LPF (Neg); RBC,URINE NONE SEEN /HPF (0-2); WBC,URINE 0-4 /HPF (0-4)
[~2020-03-24] VITALS: Ht 175.3 cm; Wt 86.0 kg
[2020-03-24] VITALS (13 sets, daily range): BP systolic 103–121; BP diastolic 62–75
[~2020-03-24 05:12] MED LIST changes: -ARIP5TAB14 PO; +CELE-193 PO; -CEPH-571 PO; -CEPH500C5 PO; -CETI-1 PO; -CLON-527 PO; -CYCL-1 PO; -ESCI10TA45 PO; +GABA300C PO; -MECL-159 PO; -NITR100C6 PO; -OMEP20CA15 PO; -ONDA4TAB6 PO; -PANT20TA3 PO; -PHEN-824 PO; -POTA10TA19 PO; -TOP25T PO; +ringers solution, lacted 1,000 ML IV SCH
[2020-03-24] MEDS ORDERED: clindamycin-Cleocin 900mg/D5W 50 ML IV ONE (05:30)
[2020-03-24] MEDS ORDERED: famotidine 20mg tablet PO ONE (05:30)
[2020-03-24] MEDS ORDERED: LIDOcaine 1% (10mg/ml) 2ml vial ONE (05:49)
[2020-03-24] MEDS ORDERED: BUPIVAcaine/PF 2.5 mg/ml (0.25%) 30ml vial ONE (06:50)
[2020-03-24] MEDS ORDERED: dexamethasone sod phosphate 10mg/ml inj ONE (07:15)
[2020-03-24] MEDS ORDERED: acetaminophen 1000 MG/100ml vial IV ONE (07:15)
[2020-03-24] MEDS ORDERED: sevoflurane 250ml liquid IH ONE (07:15)
[2020-03-24] MEDS ORDERED: midazolam 2 mg/2 ml injection ONE (07:20)
[2020-03-24] MEDS ORDERED: fentaNYL /PF 50mcg/ml 5ml ampule ONE (07:20)
[2020-03-24] MEDS ORDERED: ondansetron/PF 4mg/2ml inj IV PRN (08:10)
[2020-03-24] MEDS ORDERED: morphine 2 MG/ML inj. syringe IV PRN (08:10)
[2020-03-24] MEDS ORDERED: ringers solution, lacted 1,000 ML IV SCH (08:10)
[2020-03-24] MEDS ORDERED: meperidine/PF 25mg/ml syringe IV PRN ×2 (08:10)
[2020-03-24] MEDS ORDERED: morphine 4 MG/ML inj SYRINge IV PRN (08:10)
[2020-03-24] MEDS ORDERED: proCHLORperazine 10 MG/2 ml inj IV PRN (08:10)
[2020-03-24] MEDS ORDERED: neostigmine methylsulfate 1 MG/ML 10ml vial ONE (08:51)
[2020-03-24] MEDS ORDERED: propofol inj 20 ML IV ONE (08:51)
[2020-03-24] MEDS ORDERED: rocuronium 10mg/ml inj IV ONE (08:51)
[2020-03-24] MEDS ORDERED: ondansetron/PF 4mg/2ml inj ONE (08:51)
[2020-03-24] MEDS ORDERED: LIDOcaine 2% (20mg/ml) 5ml vial ONE (08:51)
[2020-03-24] MEDS ORDERED: glycopyrrolate 0.2mg/ml inj ONE (08:51)
--- NOTE | 2020-03-24 09:05 | NUR ---
Received from OR via BED , accompanied by Anesthesiologist DR SANCHEZ and report given by Anesthesiolgist. PATIENT WAKING UP, DENIES, V/S WNL, NEUROVASCULAR CHECKS INTACT, 20G PIV RUE, SCD ON, DEMABONDED AND BANDAIDS TO LAP SIGHTS OF ABDOMEN AND WITH PERIPAD WITH SCANT DRAINAGE CDI.
[2020-03-24] MEDS: meperidine/PF 25mg/ml syringe IV PRN ×3 (09:46→10:05)
[2020-03-24] MEDS ORDERED: HYDROcodone/acetaminophen 10/325mg tab PO ONE (09:50)
[2020-03-24] MEDS ORDERED: acetaminophen w/codeine (30MG) #3 tablet PO ONE (09:50)
--- NOTE | 2020-03-24 10:55 | NUR ---
PATIENT A&OX4, DENIES, V/S WNL, NEUROVASCULAR CHECKS INTACT, 20G PIV RUE D/C, SCD OFF, DEMABONDED AND BANDAIDS TO LAP SIGHTS OF ABDOMEN AND WITH PERIPAD WITH SCANT DRAINAGE CDI. PATIENT HAS WALKED, ATE AND DRANK AND URINATED PRIOR TO D/C. SCRIPT CALLED INTO [facility] ON [address]. HAVE REVIEWED D/C INSTRUCTIONS WITH PATIENT AND FAMILY AND THEY HAVE VERBALIZED UNDERSTANDING. PATIENT D/C HOME WITH FAMILY TO TRANSPORT AND ALL BELONGINGS..
== END 2020-03-24 10:55 | disposition home or self-care (01) ==
LOC: PAS 05:12
PROVIDERS: ATTEND Obstetrics & Gynecology
DX: R10.2 Pelvic and perineal pain (principal); D25.9 Leiomyoma of uterus, unspecified; N87.9 Dysplasia of cervix uteri, unspecified; F31.9 Bipolar disorder, unspecified; F41.9 Anxiety disorder, unspecified; Z87.891 Personal history of nicotine dependence; Z88.5 Allergy status to narcotic agent; Z88.8 Allergy status to other drugs, medicaments and biological substances; Z20.828 Contact with and (suspected) exposure to other viral communicable diseases; Z79.899 Other long term (current) drug therapy; Z98.51 Tubal ligation status; Z98.890 Other specified postprocedural states; Z88.0 Allergy status to penicillin; Z88.1 Allergy status to other antibiotic agents
CPT/HCPCS: 36415; 58571; 80053; 81001; 82948; 84703; 85025; 85610; 85730; 86885; 86900; 86901; 87635; C1758; J0131; J1100; J2001; J2175; J2250; J2270; J2405; J2704; J2710; J3010; J3490; J7120; S2900; A4618; A7000

== ENCOUNTER 2020-03-24 15:14 | Emergency (ER) | payer MEDICAID ==
[~2020-03-24] VITALS: Ht 175.3 cm; Wt 89.0 kg
[~2020-03-24 15:14] MED LIST changes: -ringers solution, lacted 1,000 ML IV SCH
[2020-03-24] MEDS ORDERED: morphine 4 MG/ML inj SYRINge IV PRN (16:15)
[2020-03-24] MEDS ORDERED: ondansetron/PF 4mg/2ml inj IV ONE (16:15)
[2020-03-24] MEDS ORDERED: normal saline 1000ML IV soln IVB ONE ×2 (16:15)
[2020-03-24 17:05] LABS: BASOPHILS % (AUTO) 0.1 % (0-1); EOSINOPHILS % (AUTO) 0 % (0-6); HEMATOCRIT 42.1 % (35.0-45.0); HEMOGLOBIN 14.4 g/dl (12.0-16.0); LYMPHOCYTES # (AUTO) 1.2 X10'3 (1.1-4.8); LYMPHOCYTES % (AUTO) 13.8 % (21-51); MEAN CORPUSCULAR HEMOGLOBIN 31.8 PG (27.0-31.0); MEAN CORPUSCULAR HGB CONC 34.1 g/dL (33.0-36.5); MEAN CORPUSCULAR VOLUME 93.4 FL (78-98); MEAN PLATELET VOLUME 7.4 FL (7.4-10.4); MONOCYTES # (AUTO) 0.3 X10'3 (0-0.9); MONOCYTES % (AUTO) 3.6 % (2-12); NEUTROPHILS % (AUTO) 82.5 % (42-75); PLATELET COUNT 282 X10'3 (140-440); RED BLOOD COUNT 4.51 X10'6 (4.20-5.60); RED CELL DISTRIBUTION WIDTH 13.5 % (11.5-14.5); WHITE BLOOD COUNT 8.5 X10'3 (4.5-11.0)
[2020-03-24 17:17] LABS: PARTIAL THROMBOPLASTIN TIME 24 SECONDS (22-32)
[2020-03-24 17:20] LABS: ALANINE AMINOTRANSFERASE 28 U/L (12-78); ALBUMIN 4.3 G/DL (3.4-5.0); ALBUMIN/GLOBULIN RATIO 1.3 (1.1-1.5); ALKALINE PHOSPHATASE 72 IU/L (46-116); ANION GAP 6 (8-16); ASPARTATE AMINO TRANSFERASE 17 U/L (10-37); BILIRUBIN,TOTAL 0.9 MG/DL (0.1-1.0); BLOOD UREA NITROGEN 7 MG/DL (7-18); BUN/CREATININE RATIO 6.9 (6.6-38.0); CALCIUM 8.6 MG/DL (8.5-10.1); CHLORIDE 104 MMOL/L (99-107); CREATININE 1.02 MG/DL (0.40-0.90); GLUCOSE 103 MG/DL (70-104); SODIUM 137 MMOL/L (135-145); TOTAL CARBON DIOXIDE 26.7 MMOL/L (24-32); TOTAL PROTEIN 7.6 G/DL (6.4-8.2); eGFR 61 ML/MIN
[2020-03-24] MEDS ORDERED: LORazepam 2 mg/ml vial IV ONE (17:35)
[2020-03-24] MEDS ORDERED: oxyCODONE/APAP 5-325mg tablet PO ONE (17:35)
[2020-03-24 19:04] VITALS: BP 114/74
== END 2020-03-24 19:04 | disposition home or self-care (01) ==
LOC: ER 15:14
DX: N93.9 Abnormal uterine and vaginal bleeding, unspecified (principal); G43.909 Migraine, unspecified, not intractable, without status migrainosus; K21.9 Gastro-esophageal reflux disease without esophagitis; G89.29 Other chronic pain; F32.9 Major depressive disorder, single episode, unspecified; F17.200 Nicotine dependence, unspecified, uncomplicated; Z87.440 Personal history of urinary (tract) infections; Z90.89 Acquired absence of other organs; Z90.710 Acquired absence of both cervix and uterus; Z98.51 Tubal ligation status; Z88.1 Allergy status to other antibiotic agents; Z88.0 Allergy status to penicillin; Z88.8 Allergy status to other drugs, medicaments and biological substances; Z88.6 Allergy status to analgesic agent; Z79.899 Other long term (current) drug therapy
CPT/HCPCS: 36415; 80053; 85025; 85610; 85730; 96361; 96374; 96375; 99284; J2060; J2270; J2405; J7030

== ENCOUNTER 2020-05-14 15:14 | Emergency (ER) | payer MEDICAID ==
[~2020-05-14] VITALS: Ht 175.3 cm; Wt 86.4 kg
[2020-05-14] MEDS ORDERED: oxyCODONE/APAP 5-325mg tablet PO ONE (15:20)
[2020-05-14] MEDS ORDERED: NAPR-56 PO (15:35)
[2020-05-15] MEDS ORDERED: DICY10CA88 PO (11:52)
== END 2020-05-14 15:59 | disposition home or self-care (01) ==
LOC: ER 15:15
DX: S63.502A Unspecified sprain of left wrist, initial encounter (principal); M25.532 Pain in left wrist; G43.909 Migraine, unspecified, not intractable, without status migrainosus; K21.9 Gastro-esophageal reflux disease without esophagitis; G89.29 Other chronic pain; F32.9 Major depressive disorder, single episode, unspecified; Z87.440 Personal history of urinary (tract) infections; Z90.89 Acquired absence of other organs; Z90.710 Acquired absence of both cervix and uterus; Z98.51 Tubal ligation status; Z88.1 Allergy status to other antibiotic agents; Z88.0 Allergy status to penicillin; Z88.8 Allergy status to other drugs, medicaments and biological substances; Z88.6 Allergy status to analgesic agent; Z79.2 Long term (current) use of antibiotics; Z79.899 Other long term (current) drug therapy; V89.2XXA Person injured in unspecified motor-vehicle accident, traffic, initial encounter; Y93.89 Activity, other specified; Y92.89 Other specified places as the place of occurrence of the external cause; Y99.8 Other external cause status
CPT/HCPCS: 29125; 73110; 99283

== ENCOUNTER 2020-05-15 09:51 | Emergency (ER) | payer MEDICAID, OTHER ==
[~2020-05-15] VITALS: Ht 175.3 cm; Wt 86.4 kg
[~2020-05-15 09:51] MED LIST changes: +NAPR-56 PO
[2020-05-15 10:01] VITALS: BP 143/94
[2020-05-15] MEDS ORDERED: ondansetron 4mg rapidly disintigrating tab PO ONE (10:05)
[2020-05-15] MEDS ORDERED: oxyCODONE/APAP 10/325mg tablet PO ONE (10:05)
[2020-05-15 10:54] LABS: BASOPHILS % (AUTO) 0.8 % (0-1); EOSINOPHILS % (AUTO) 0.3 % (0-6); HEMATOCRIT 40.7 % (35.0-45.0); LYMPHOCYTES # (AUTO) 1.4 X10'3 (1.1-4.8); LYMPHOCYTES % (AUTO) 48.9 % (21-51); MEAN CORPUSCULAR HEMOGLOBIN 32.1 PG (27.0-31.0); MEAN CORPUSCULAR HGB CONC 34.4 g/dL (33.0-36.5); MEAN CORPUSCULAR VOLUME 93.3 FL (78-98); MEAN PLATELET VOLUME 6.9 FL (7.4-10.4); MONOCYTES # (AUTO) 0.2 X10'3 (0-0.9); MONOCYTES % (AUTO) 6.3 % (2-12); NEUTROPHILS # (AUTO) 1.3 X10'3 (1.8-7.7); NEUTROPHILS % (AUTO) 43.7 % (42-75); PLATELET COUNT 240 X10'3 (140-440); RED BLOOD COUNT 4.36 X10'6 (4.20-5.60); RED CELL DISTRIBUTION WIDTH 13.2 % (11.5-14.5); WHITE BLOOD COUNT 2.9 X10'3 (4.5-11.0)
[2020-05-15 11:06] LABS: ALANINE AMINOTRANSFERASE 15 U/L (12-78); ALBUMIN 4.1 G/DL (3.4-5.0); ALBUMIN/GLOBULIN RATIO 1.2 (1.1-1.5); ALKALINE PHOSPHATASE 84 IU/L (46-116); ANION GAP 10 (8-16); ASPARTATE AMINO TRANSFERASE 16 U/L (10-37); BILIRUBIN,TOTAL 0.7 MG/DL (0.1-1.0); BLOOD UREA NITROGEN 8 MG/DL (7-18); BUN/CREATININE RATIO 11.4 (6.6-38.0); CALCIUM 8.8 MG/DL (8.5-10.1); CHLORIDE 106 MMOL/L (99-107); GLUCOSE 110 MG/DL (70-104); POTASSIUM 4.1 MMOL/L (3.5-5.1); SODIUM 141 MMOL/L (135-145); TOTAL CARBON DIOXIDE 25.2 MMOL/L (24-32); TOTAL PROTEIN 7.6 G/DL (6.4-8.2); eGFR > 90 ML/MIN
[2020-05-15 11:32] LABS: TOTAL CELLS COUNTED 100
[2020-05-15 11:33] LABS: PLATELET ESTIMATE NORMAL
[2020-05-15] MEDS ORDERED: DICY10CA88 PO (11:52)
== END 2020-05-15 12:05 | disposition home or self-care (01) ==
LOC: ER 09:53
DX: R10.31 Right lower quadrant pain (principal); M25.532 Pain in left wrist; R11.2 Nausea with vomiting, unspecified; R07.89 Other chest pain; G43.909 Migraine, unspecified, not intractable, without status migrainosus; K21.9 Gastro-esophageal reflux disease without esophagitis; G89.29 Other chronic pain; F32.9 Major depressive disorder, single episode, unspecified; Z87.440 Personal history of urinary (tract) infections; Z90.89 Acquired absence of other organs; Z90.710 Acquired absence of both cervix and uterus; Z98.51 Tubal ligation status; Z88.1 Allergy status to other antibiotic agents; Z88.0 Allergy status to penicillin; Z88.8 Allergy status to other drugs, medicaments and biological substances; Z88.6 Allergy status to analgesic agent; Z79.899 Other long term (current) drug therapy; V89.2XXA Person injured in unspecified motor-vehicle accident, traffic, initial encounter; Y93.89 Activity, other specified; Y92.89 Other specified places as the place of occurrence of the external cause; Y99.8 Other external cause status
CPT/HCPCS: 36415; 80053; 85007; 85025; 99283

== ENCOUNTER 2021-04-22 10:27 | Emergency (ER) | payer MEDICAID ==
[~2021-04-22] VITALS: Ht 175.3 cm; Wt 97.6 kg
[~2021-04-22 10:27] MED LIST changes: +DICY10CA88 PO; -NAPR-56 PO
[2021-04-22 10:39] VITALS: BP 132/83
[2021-04-22] MEDS ORDERED: POLY17PO10 PO (11:28)
[2021-04-22] MEDS ORDERED: BISA10SU60 RC (11:28)
== END 2021-04-22 11:55 | disposition home or self-care (01) ==
LOC: ER 10:27
DX: K59.00 Constipation, unspecified (principal); G43.909 Migraine, unspecified, not intractable, without status migrainosus; K21.9 Gastro-esophageal reflux disease without esophagitis; F32.9 Major depressive disorder, single episode, unspecified; Z87.440 Personal history of urinary (tract) infections; Z90.89 Acquired absence of other organs; Z90.710 Acquired absence of both cervix and uterus; Z98.51 Tubal ligation status; Z98.890 Other specified postprocedural states; Z88.1 Allergy status to other antibiotic agents; Z88.0 Allergy status to penicillin; Z88.8 Allergy status to other drugs, medicaments and biological substances; Z79.899 Other long term (current) drug therapy
CPT/HCPCS: 74018; 99283

== ENCOUNTER 2023-12-03 17:07 | Emergency (ER) | payer MEDICAID ==
[~2023-12-03] VITALS: Ht 172.7 cm; Wt 94.1 kg
[~2023-12-03 17:07] MED LIST changes: +BISA10SU60 RC; +DOCU100C40 PO; +HYDR25SU32 RC; +LIDO30CR TOP
[2023-12-03 17:46] LABS: BILIRUBIN,URINE NEGATIVE (Neg); CLARITY,URINE CLEAR (Clear); COLOR,URINE YELLOW (Yellow); GLUCOSE, URINE NEGATIVE (Neg); KETONES,URINE NEGATIVE (Neg); LEUKOCYTE ESTERASE ,URINE NEGATIVE (Neg); NITRITES, URINE NEGATIVE (Neg); OCCULT BLOOD,URINE NEGATIVE (Neg); PH,URINE 7.5 (4.8-8.0); PROTEIN,URINE NEGATIVE (Neg); UROBILINOGEN,URINE 0.2 E.U/dL (0.2-1.0)
[2023-12-03 17:47] LABS: URINE HCG NEGATIVE (NEG)
[2023-12-03 17:49] LABS: UA COLLECTION TYPE CLN CATCH MIDSTREAM
[2023-12-03 18:02] LABS: BASOPHILS % (AUTO) 0.4 % (0-1); EOSINOPHILS % (AUTO) 0 % (0-6); HEMATOCRIT 39.9 % (35.0-45.0); HEMOGLOBIN 13.5 g/dl (12.0-16.0); LYMPHOCYTES # (AUTO) 2.1 X10'3 (1.1-4.8); MEAN CORPUSCULAR HEMOGLOBIN 31.1 PG (27.0-31.0); MEAN CORPUSCULAR HGB CONC 33.8 g/dL (33.0-36.5); MEAN CORPUSCULAR VOLUME 91.9 FL (78-98); MEAN PLATELET VOLUME 6.5 FL (7.4-10.4); MONOCYTES # (AUTO) 0.2 X10'3 (0-0.9); MONOCYTES % (AUTO) 4.9 % (2-12); NEUTROPHILS # (AUTO) 2.6 X10'3 (1.8-7.7); NEUTROPHILS % (AUTO) 52.7 % (42-75); PLATELET COUNT 269 X10'3 (140-440); RED BLOOD COUNT 4.34 X10'6 (4.20-5.60); RED CELL DISTRIBUTION WIDTH 13.3 % (11.5-14.5)
[2023-12-03 18:07] LABS: ALANINE AMINOTRANSFERASE 19 U/L (12-78); ALBUMIN 3.9 G/DL (3.4-5.0); ALBUMIN/GLOBULIN RATIO 1.1 (1.1-1.5); ALKALINE PHOSPHATASE 87 IU/L (46-116); ANION GAP 6 (8-16); ASPARTATE AMINO TRANSFERASE 13 U/L (10-37); BILIRUBIN,TOTAL 0.8 MG/DL (0.1-1.0); BLOOD UREA NITROGEN 9 MG/DL (7-18); BUN/CREATININE RATIO 9.5 (10.0-20.0); CALCIUM 8.6 MG/DL (8.5-10.1); CHLORIDE 103 MMOL/L (99-107); CREATININE 0.95 MG/DL (0.40-0.90); GLUCOSE 95 MG/DL (70-104); LIPASE 29 U/L (16-77); POTASSIUM 3.8 MMOL/L (3.5-5.1); SODIUM 138 MMOL/L (135-145); TOTAL CARBON DIOXIDE 29.4 MMOL/L (24-32); TOTAL PROTEIN 7.4 G/DL (6.4-8.2); eCRCL 78 ML/MIN; eGFR 65 ML/MIN
[2023-12-03] MEDS: ondansetron 4mg rapidly disintigrating tab PO ONE (19:01)
[2023-12-03] MEDS: dicyclomine 10 MG capsule PO ONE (19:01)
[2023-12-03] MEDS: ketorolac trometh. 30mg/ml inj. IM ONE (19:02)
[2023-12-03] MEDS ORDERED: ONDA-243 PO (21:25)
[2023-12-03] MEDS ORDERED: DICY20TA17 PO (21:25)
[2023-12-03 21:43] VITALS: TEMP 99.8
[2023-12-03 21:50] VITALS: BP 116/74; PULSE 68; RESP 18; O2SAT 99
== END 2023-12-03 21:51 | disposition home or self-care (01) ==
LOC: ER 17:07
DX: K29.00 Acute gastritis without bleeding (principal); R10.13 Epigastric pain; R10.11 Right upper quadrant pain; G43.909 Migraine, unspecified, not intractable, without status migrainosus; K21.9 Gastro-esophageal reflux disease without esophagitis; G89.29 Other chronic pain; M54.9 Dorsalgia, unspecified; F41.9 Anxiety disorder, unspecified; F32.A Depression, unspecified; Z88.2 Allergy status to sulfonamides; Z88.0 Allergy status to penicillin; Z88.1 Allergy status to other antibiotic agents; Z88.5 Allergy status to narcotic agent; Z79.899 Other long term (current) drug therapy; Z79.2 Long term (current) use of antibiotics; Z98.890 Other specified postprocedural states; Z90.710 Acquired absence of both cervix and uterus; Z98.51 Tubal ligation status; Z87.891 Personal history of nicotine dependence
CPT/HCPCS: 36415; 71250; 74176; 76700; 80053; 81003; 81025; 83690; 85025; 96372; 99285; J1885

== ENCOUNTER → 2024-08-09 | Emergency (ER) | payer MEDICAID ==
[~2024-08-09] VITALS: Ht 175.3 cm; Wt 93.0 kg
[~2024-08-09] MED LIST changes: +DICY20TA17 PO; +HYDR-3686 PO; +ONDA-243 PO
[2024-08-09 15:56] VITALS: BP 178/72; PULSE 83; RESP 15; O2SAT 83
[2024-08-09] MEDS: hydrOXYzine 25 MG tablet PO ONE (16:56)
[2024-08-09 17:56] VITALS: TEMP 98.7
== END | disposition home or self-care (01) ==
LOC: ER 15:48
DX: R25.2 Cramp and spasm (principal); T38.0X5A Adverse effect of glucocorticoids and synthetic analogues, initial encounter; G89.29 Other chronic pain; M54.9 Dorsalgia, unspecified; K21.9 Gastro-esophageal reflux disease without esophagitis; G43.909 Migraine, unspecified, not intractable, without status migrainosus; F41.9 Anxiety disorder, unspecified; F32.A Depression, unspecified; Z88.2 Allergy status to sulfonamides; Z88.0 Allergy status to penicillin; Z88.1 Allergy status to other antibiotic agents; Z88.5 Allergy status to narcotic agent; Z88.8 Allergy status to other drugs, medicaments and biological substances; Z90.49 Acquired absence of other specified parts of digestive tract; Z90.710 Acquired absence of both cervix and uterus; Z79.899 Other long term (current) drug therapy; Y92.89 Other specified places as the place of occurrence of the external cause
CPT/HCPCS: 99283; Q0177

== ENCOUNTER 2024-10-02 10:37 | Outpatient (CLI) | payer MEDICAID ==
--- NOTE | 2024-10-02 15:47 | RADIOLOGY REPORT ---
EXAM: CT CT LOWER EXTREMITY INDICATION: PAIN IN RIGHT ANKLE AND JOINTS OF RIGHT FOOT TECHNIQUE: Axial images of right ankle without contrast have been obtained along with coronal and sag ittal reformatted images. All CT scans at this facility use dose modulation, iterative reconstruction , and/or weight based dosing when appropriate to reduce radiation dose to as low as reasonably achiev able. COMPARISON: None FINDINGS: BONES: Multiple screws along the anterior talus bridging across the talonavicular articulation. Part ial osseous fusion of the inferior aspect of the talonavicular joint. Osseous fusion across the post erior subtalar joint. Calcaneal cortical lag screw. Osseous lucency is of the talus, likely reflectin g interosseous versus subchondral cysts. MUSCLES: No abnormal attenuation. JOINT SPACES: No joint effusion. TENDONS/LIGAMENTS: Thickening of the peroneal tendons in the inframalleolar segment, which may be sug gestive of underlying prior injury/pathology OTHER: None. IMPRESSION: 1. Incomplete fusion across of the talonavicular articulation. 2. Fusion of the posterior subtalar joint and anterior subtalar joint.
== END 2024-10-02 23:59 | disposition home or self-care (01) ==
LOC: RAD 10:37
PROVIDERS: ATTEND Podiatrist Foot & Ankle Surgery
DX: M19.071 Primary osteoarthritis, right ankle and foot (principal); M21.41 Flat foot [pes planus] (acquired), right foot; M21.6X1 Other acquired deformities of right foot; M25.374 Other instability, right foot; M25.571 Pain in right ankle and joints of right foot; M79.671 Pain in right foot; M25.471 Effusion, right ankle; M24.671 Ankylosis, right ankle; M25.071 Hemarthrosis, right ankle; M25.551 Pain in right hip
CPT/HCPCS: 73700

== ENCOUNTER 2025-02-22 15:47 | Emergency (ER) | payer MEDICAID ==
[~2025-02-22] VITALS: Ht 175.3 cm; Wt 91.0 kg
[2025-02-22 15:59] VITALS: TEMP 97.4
--- NOTE | 2025-02-22 16:03 | Physician Documentation ---
History of Present Illness General Stated Complaint: BLOOD IN STOOL Time Seen by MD: 17:06 Primary Medical Doctor: Leslie Saeed History of Present Illness Initial Comments 44-year-old female with a known history of external hemorrhoids presents to the emergency department due to discomfort from her hemorrhoids along with bleeding. Has seen surgery in the past for ligation. Medical examination complete. Medication Reconciliation Allergies: Coded Allergies: sulfamethoxazole (Verified Allergy, Intermediate, rash, 02/22/25) trimethoprim (Verified Allergy, Intermediate, rash, 02/22/25) Penicillins (Verified Allergy, Unknown, 02/22/25) ampicillin (Verified Allergy, Unknown, 02/22/25) hydrocodone (Verified Allergy, Unknown, HIVES, 02/22/25) ketorolac (Unverified Allergy, Unknown, 02/22/25) tramadol (Unverified Allergy, Unknown, 02/22/25) Scheduled Bisacodyl (Dulcolax), 1 SUPP RC DAILY Dicyclomine HCl (Dicyclomine HCl), 1 TAB PO Q12H Dicyclomine Hcl* (Bentyl*), 1 CAP PO TID Docusate Sodium (Docusate Sodium), 1 CAP PO Q12H Hydrocortisone Acetate (Anusol-Hc), 1 SUPP RC Q12H Hydroxyzine Hcl (Atarax), 1-2 TAB PO Q8H Lidocaine/Prilocaine (Lidocaine-Prilocaine Cream), 1 APPLIC TOP BID Scheduled PRN Celecoxib* (Celebrex*), 50 MG PO BID PRN for pain, (Reported) Gabapentin (Neurontin), 300 MG PO BID PRN for pain, (Reported) ONDANSETRON ODT 4mg tablet (Ondansetron Odt), 1 TAB PO Q6H PRN PRN for nausea/vomiting Quetiapine Fumarate (Seroquel), 100 MG PO HS PRN for sleep, (Reported) Past Medical History Past Medical History: Headache, Migraine, Bronchitis, GERD, Hemorrhoids, UTI, Chronic Pain, Chronic Back Pain, Anxiety, Depression Past Surgical History: appendectomy, hysterectomy, orthopedic surgeries, tonsillectomy, tubal ligation Smoking: Non-Smoker Alcohol Use: None Drug Use: none Lives with: Family Lives In: Home Occupation: employed, other Review of Systems All Other Systems at this time: Reviewed and Negative Genitourinary External hemorrhoids Physical Exam Physical Exam Physical Exam General: Alert, no apparent distress. HEENT: moist mucous membranes. Neck: Full range of motion. Respiratory: No respiratory distress speaking in full sentences Chest: No accessory muscle use. Cardiovascular: Appears well perfused Rectal: Normal rectal tone multiple small external hemorrhoids 1 large at 6:00 a.m. slightly engorged but not thrombosed no bleeding Neurologic: Oriented x4. Psychiatric: Normal mood and affect. Skin: Normal color, warm and dry. No edema, no ecchymosis. Progress Results/Orders Results/Orders Completed Orders - MADELIN HERMAN NP Pramoxine Foam Dalton (Proctofoam Dalton) (02/22/25 17:14) Hydrocortisone Suppository (Anucort-Hc S (02/22/25 17:14) Vital Signs 02/22/25 02/22/25 15:59 16:35 Temp 97.4 Pulse 88 Resp 16 18 B/P (MAP) 141/89 Pulse Ox 99 O2 Flow Rate 0 Laboratory Tests Test 02/22/25 16:15 White Blood Count 4.3 L Red Blood Count 4.44 Hemoglobin 14.3 Hematocrit 40.4 Mean Corpuscular Volume 91.0 Mean Corpuscular Hemoglobin 32.1 H Mean Corpuscular Hemoglobin Concent 35.3 Red Cell Distribution Width 12.5 Platelet Count 287 Mean Platelet Volume 6.8 L Neutrophils (%) (Auto) 58.2 Lymphocytes (%) (Auto) 38.4 Monocytes (%) (Auto) 3.0 Eosinophils (%) (Auto) 0.1 Basophils (%) (Auto) 0.3 Neutrophils # (Auto) 2.5 Lymphocytes # (Auto) 1.7 Monocytes # (Auto) 0.1 Eosinophils # (Auto) 0.0 Basophils # (Auto) 0.0 CBC Comment Sodium Level 139 Potassium Level 3.7 Chloride Level 104 Carbon Dioxide Level 28.3 Anion Gap 7 L Blood Urea Nitrogen 11 Creatinine 0.91 H Estimated GFR/1.73 m2 67 BUN/Creatinine Ratio 12.1 Glucose Level 107 H Calcium Level 8.4 L Albumin 3.9 Chemistry Comments Medical Decision Making Additional information obtaine: N/A Findings 44-year-old female who presents with bleeding hemorrhoids that are painful. Large external hemorrhoid history of hemorrhoidectomy was not feeling well and on the toilet more often a few days ago and noticed some blood in the toilet water and on her toilet paper needing to have a pad for approximately 1 day. Today small amount of blood when wiping otherwise unremarkable. Labs and vital signs reassuring. Large external hemorrhoid is not thrombosed no intervention necessary we will use suppository and Proctofoam to help reduce size to follow up with primary care Differential Diagnosis Nonthrombosed cyst thrombosed, internal this is external hemorrhoids, anal fissures tumors masses Departure Time of Disposition: 17:48 Disposition: 01 HOME / SELF CARE / HOMELESS Impression: Primary Impression: External Rectal Hemorrhoids Condition: Stable Discharge Instructions: Hemorrhoids, [id number] Additional Instructions: Use Proctofoam and suppositories follow up with primary care for potential referral to evaluate for removal of hemorrhoids. Referrals: NO PRIMARY CARE PROVIDER (PCP) Prescriptions Phenylephrine HCl/[place] [facility]* (Preparation H Suppository*) Y Supp.rect 1 SUPP.RECT [place] Q12H PRN for itching for 14 Days, #14 SUPP.RECT UNWRAP AND INSERT SUPPOSITORY Prov: MADELIN HERMAN NP 02/22/25 Education Educated: Patient Educated regarding: diagnosis, treatment, need for follow up Signature Scribe Signature: No scribe Attestation: The note accurately reflects work and decisions made by me.Madelin Herman - FATMATA 02/22/25 17:50 SUSAN ALMONTE PAC Feb 22, 2025 16:03 MADELIN HERMAN NP Feb 22, 2025 17:50
[2025-02-22 16:26] LABS: MEAN PLATELET VOLUME 6.8 FL (7.4-10.4); RED CELL DISTRIBUTION WIDTH 12.5 % (11.5-14.5)
[2025-02-22 16:34] LABS: CREATININE 0.91 MG/DL (0.40-0.90); TOTAL CARBON DIOXIDE 28.3 MMOL/L (24-32); eCRCL 83 ML/MIN; eGFR 67 ML/MIN
[2025-02-22] MEDS ORDERED: PHEN1SUP96 PR (17:50)
[2025-02-22] MEDS: pramoxine 1% foam spray 15gm TP STA (18:02)
[2025-02-22] MEDS: hydrocortisone acetate 25mg rectal suppository RC STA (18:02)
[2025-02-22 18:12] VITALS: BP 114/80; PULSE 79; RESP 16; O2SAT 97
== END 2025-02-22 18:10 | disposition home or self-care (01) ==
LOC: ER 15:47
DX: K64.4 Residual hemorrhoidal skin tags (principal); G89.29 Other chronic pain; G43.909 Migraine, unspecified, not intractable, without status migrainosus; K21.9 Gastro-esophageal reflux disease without esophagitis; F41.9 Anxiety disorder, unspecified; F32.A Depression, unspecified; Z88.2 Allergy status to sulfonamides; Z88.0 Allergy status to penicillin; Z88.1 Allergy status to other antibiotic agents; Z88.5 Allergy status to narcotic agent; Z88.8 Allergy status to other drugs, medicaments and biological substances; Z90.49 Acquired absence of other specified parts of digestive tract; Z90.710 Acquired absence of both cervix and uterus; Z87.440 Personal history of urinary (tract) infections; Z87.19 Personal history of other diseases of the digestive system; Z79.899 Other long term (current) drug therapy
CPT/HCPCS: 36415; 80048; 85025; 99283; J7999